=== PATIENT | female | born 1950 | race African-American/Black ===

== ENCOUNTER 2019-02-04 15:23 | Emergency (ER) | payer OTHER ==
[2019-02-04 16:59] LABS: Absolute Lymphocytes (CBC) 1.3 K/uL (0.7-4.9); Basophils % 0.9 % (0-1.3); Eosinophils % 4.5 % (0-4.4); Hematocrit 41.5 % (36.0-45.0); Lymphocytes % 21.9 % (15.3-44.8); MPV 7.9 fL (7.6-11.3); Monocytes % 10.1 % (3.3-12.3); RBC Red Blood Cell Count 4.96 M/uL (3.86-4.86)
[2019-02-04 17:02] LABS: Protime INR 0.94
[2019-02-04 17:19] LABS: ALT/SGPT 26 U/L (12-78); AST/SGOT 22 U/L (15-37); Albumin 3.9 g/dL (3.4-5.0); Alkaline Phosphatase 61 U/L (45-117); BUN Blood Urea Nitrogen 13 mg/dL (7-18); Bicarbonate 32 mmol/L (21-32); Bilirubin Total 0.5 mg/dL (0.2-1.0); Glucose Level 84 mg/dL (74-106); Potassium 3.4 mmol/L (3.5-5.1); Protein, Total 7.5 g/dL (6.4-8.2); Sodium Level 141 mmol/L (136-145)
[2019-02-04 17:19] LABS: Urine Amorphous Sediment 3+ /HPF (NONE SEEN); Urine Bacteria <20 /HPF (<20); Urine Culture Reflex Order NOT NEEDED; Urine RBC NONE SEEN /HPF (NONE SEEN)
[2019-02-04 17:20] LABS: Urine Blood NEGATIVE (NEG); Urine Glucose NEGATIVE (NEG); Urine Protein NEGATIVE (NEG)
--- NOTE | 2019-02-04 18:03 | RAD REPORT ---
EXAM DESCRIPTION: USExtrem Venous W Compress Bil02/04/2019 5:53 pm CLINICAL HISTORY: Bilateral leg swelling COMPARISON: Aug 2017 FINDINGS: The common femoral, superficial femoral, popliteal and posterior tibial veins bilaterally are compressible and demonstrate augmentation. Doppler demonstrates good flow. IMPRESSION: No evidence of deep venous thrombosis involving either lower extremity.
[2019-02-04] MEDS ORDERED: ACETAMINOPHEN 500 MG TAB ONE (18:07)
[2019-02-04] MEDS ORDERED: POTASSIUM 25 MEQ EFFERV TAB ONE (18:07)
--- NOTE | 2019-02-04 18:15 | ER ---
Nurse's Notes [facility] Name: Fan Woodruff Age: 68 yrs Sex: Female : 1950 Arrival Date: 02/04/2019 Time: 15:26 Bed 17 Private MD: Diagnosis: acute bilateral leg pain Presentation: 02/04 15:28 Presenting complaint: Patient states: today, both my lower legs are hurting bad, its hj hard for me to get off the bed; denies weakness, denies swelling, denies trauma to the area;. Transition of care: patient was not received from another setting of care. Onset of symptoms was February 04, 2019. Risk Assessment: Do you want to hurt yourself or someone else? Patient reports no desire to harm self or others. Initial Sepsis Screen: Does the patient meet any 2 criteria? No. Patient's initial sepsis screen is negative. Does the patient have a suspected source of infection? No. Patient's initial sepsis screen is negative. Care prior to arrival: None. 15:28 Method Of Arrival: Ambulatory 15:28 Acuity: JOHN 3 hj Triage Assessment: 15:30 General: Appears in no apparent distress. comfortable, Behavior is cooperative, bp appropriate for age, anxious. Pain: Complains of pain in right leg and left leg. EENT: No deficits noted. Neuro: No deficits noted. Cardiovascular: No deficits noted. Respiratory: No deficits noted. GI: No signs and/or symptoms were reported involving the gastrointestinal system. : No signs and/or symptoms were reported regarding the genitourinary system. Derm: No deficits noted. Musculoskeletal: No deficits noted. Historical: - Allergies: 15:30 No Known Allergies; hj - PMHx: 15:30 Hypertension; fatty liver; hj - PSHx: 15:30 sx for fractured clavicle; Partial hysterectomy; ; hj - Immunization history:: Adult Immunizations up to date. - Social history:: Smoking status: Patient/guardian denies using tobacco. - Family history:: not pertinent. - Ebola Screening: : No symptoms or risks identified at this time. - Hospitalizations: : No recent hospitalization is reported. Screenin:30 Abuse screen: Denies threats or abuse. Denies injuries from another. Nutritional bp screening: No deficits noted. Tuberculosis screening: No symptoms or risk factors identified. Fall Risk None identified. Assessment: 15:30 General: SEE TRIAGE NOTE. bp 17:24 Reassessment: U/S AT B/S. bp 19:00 Reassessment: PT D/C HOME AMBULATORY WITH FAMILY, DX WITH ACUTE LEG PAIN. bp Vital Signs: 15:30 BP 103 / 63; Pulse 77; Resp 16; Temp 98.3(O); Pulse Ox 96% on R/A; Weight 90.72 kg; hj Height 5 ft. 6 in. (167.64 cm); Pain 6/10; 16:30 BP 111 / 77; Pulse 71; Resp 16; Temp 98.0(TE); Pulse Ox 99% on R/A; mh5 17:22 BP 119 / 71; Pulse 67; Resp 17; Temp 97.9(TE); Pulse Ox 100% on R/A; mh5 19:00 BP 110 / 66; Pulse 65; Resp 16; Temp 98; Pulse Ox 100% ; bp 15:30 Body Mass Index 32.28 (90.72 kg, 167.64 cm) ED Course: 15:26 Patient arrived in ED. mr 15:30 Triage completed. hj 15:30 Patient has correct armband on for positive identification. Bed in low position. Call bp light in reach. Side rails up X2. Adult w/ patient. 15:32 Arm band placed on right wrist. hj 15:49 Ernesto Ortiz MD is Attending Physician. wa 16:07 Abel Elizabeth, RN is Primary Nurse. bp 17:54 Extrem Venous W Compression [place] US In Process Unspecified. EDOH 19:00 No provider procedures requiring assistance completed. IV discontinued, intact, bp bleeding controlled, No redness/swelling at site. Pressure dressing applied. Administered Medications: 17:30 Drug: Potassium Effervescent Tablet 50 mEq Route: PO; bp 17:30 Drug: Tylenol 1000 mg Route: PO; bp Outcome: 18:14 Discharge ordered by . wa 19:00 Discharged to home ambulatory, with family. bp 19:00 Condition: stable 19:00 Discharge instructions given to patient, Instructed on discharge instructions, follow up and referral plans. medication usage, Demonstrated understanding of instructions, follow-up care, medications, Prescriptions given X 1. 19:08 Patient left the ED. bp Signatures: Dispatcher [employer] [facility] Filomena Del Valle LucaBrian combs RN RN Emmanuelle Song mh5 Ernesto Ortiz MD MD wa Peltier, Brian, RN RN bp Corrections: (The following items were deleted from the chart) 15:32 15:30 Pulse 77bpm; Resp 16bpm; Pulse Ox 96% RA; Temp 98.3F Oral; 90.72 kg; Height 5 ft. hj 6 in.; BMI: 32.2; Pain 6/10; hj
--- NOTE | 2019-02-04 18:15 | EDPHYS ---
Physician Documentation [facility] Name: Fan Woodruff Age: 68 yrs Sex: Female : 1950 Arrival Date: 02/04/2019 Time: 15:26 Bed 17 Private MD: ED Physician Ernesto Ortiz HPI: 02/04 19:05 This 68 yrs old Black Female presents to ER via Ambulatory with complaints of Leg Pain. wa 19:05 The patient presents with pain, that is acute. The complaints affect the left leg and wa right leg. Context: The problem was sustained at home, resulted from an unknown cause, the patient can fully bear weight, the patient is able to ambulate, without difficulty, Problem is a result from a previous injury: No. states developed severe both legs pain while at home today. now improved. denies trauma. denies h/o same in the past. Onset: The symptoms/episode began/occurred today. Modifying factors: The symptoms are alleviated by nothing. the symptoms are aggravated by nothing. Associated signs and symptoms: The patient has no apparent associated signs or symptoms. Treatment prior to arrival includes: no previous treatment. Severity of symptoms: At their worst the symptoms were severe, in the emergency department the symptoms have improved, markedly. The patient has not experienced similar symptoms in the past. The patient has not recently seen a physician. Historical: - Allergies: 15:30 No Known Allergies; hj - PMHx: 15:30 Hypertension; fatty liver; hj - PSHx: 15:30 sx for fractured clavicle; Partial hysterectomy; ; hj - Immunization history:: Adult Immunizations up to date. - Social history:: Smoking status: Patient/guardian denies using tobacco. - Family history:: not pertinent. - Ebola Screening: : No symptoms or risks identified at this time. - Hospitalizations: : No recent hospitalization is reported. ROS: 19:08 Constitutional: Negative for fever, chills, and weight loss, Eyes: Negative for injury, wa pain, redness, and discharge, ENT: Negative for injury, pain, and discharge, Neck: Negative for injury, pain, and swelling, Cardiovascular: Negative for chest pain, palpitations, and edema, Respiratory: Negative for shortness of breath, cough, wheezing, and pleuritic chest pain, Abdomen/GI: Negative for abdominal pain, nausea, vomiting, diarrhea, and constipation, Back: Negative for injury and pain, : Negative for injury, bleeding, discharge, and swelling, Skin: Negative for injury, rash, and discoloration, Neuro: Negative for headache, weakness, numbness, tingling, and seizure, Psych: Negative for depression, anxiety, suicide ideation, homicidal ideation, and hallucinations. 19:08 MS/extremity: Positive for pain, of the left leg and right leg, Negative for injury or acute deformity, contusion, ecchymosis, erythema, swelling. Exam: 19:09 Constitutional: This is a well developed, well nourished patient who is awake, alert, wa and in no acute distress. Head/Face: Normocephalic, atraumatic. Eyes: Pupils equal round and reactive to light, extra-ocular motions intact. Lids and lashes normal. Conjunctiva and sclera are non-icteric and not injected. Cornea within normal limits. Periorbital areas with no swelling, redness, or edema. ENT: Nares patent. No nasal discharge, no septal abnormalities noted. Tympanic membranes are normal and external auditory canals are clear. Oropharynx with no redness, swelling, or masses, exudates, or evidence of obstruction, uvula midline. Mucous membranes moist. Neck: Trachea midline, no thyromegaly or masses palpated, and no cervical lymphadenopathy. Supple, full range of motion without nuchal rigidity, or vertebral point tenderness. No Meningismus. Chest/axilla: Normal chest wall appearance and motion. Nontender with no deformity. No lesions are appreciated. Cardiovascular: Regular rate and rhythm with a normal S1 and S2. No gallops, murmurs, or rubs. Normal PMI, no JVD. No pulse deficits. Respiratory: Lungs have equal breath sounds bilaterally, clear to auscultation and percussion. No rales, rhonchi or wheezes noted. No increased work of breathing, no retractions or nasal flaring. Abdomen/GI: Soft, non-tender, with normal bowel sounds. No distension or tympany. No guarding or rebound. No evidence of tenderness throughout. Back: No spinal tenderness. No costovertebral tenderness. Full range of motion. Neuro: Awake and alert, GCS 15, oriented to person, place, time, and situation. Cranial nerves II-XII grossly intact. Motor strength 5/5 in all extremities. Sensory grossly intact. Cerebellar exam normal. Normal gait. Psych: Awake, alert, with orientation to person, place and time. Behavior, mood, and affect are within normal limits. 19:09 Musculoskeletal/extremity: Extremities: no swelling to both lower extremities. normothermic. no redness. however multiple spider varicose veins noted bilaterally, ROM: no acute changes, intact in all extremities. Vital Signs: 15:30 BP 103 / 63; Pulse 77; Resp 16; Temp 98.3(O); Pulse Ox 96% on R/A; Weight 90.72 kg; hj Height 5 ft. 6 in. (167.64 cm); Pain 6/10; 16:30 BP 111 / 77; Pulse 71; Resp 16; Temp 98.0(TE); Pulse Ox 99% on R/A; mh5 17:22 BP 119 / 71; Pulse 67; Resp 17; Temp 97.9(TE); Pulse Ox 100% on R/A; mh5 19:00 BP 110 / 66; Pulse 65; Resp 16; Temp 98; Pulse Ox 100% ; bp 15:30 Body Mass Index 32.28 (90.72 kg, 167.64 cm) MDM: 15:49 Patient medically screened. ga 19:10 Differential diagnosis: pain of unclear etiology that has improved. ga 02/04 16:18 Order name: CBC with Diff; Complete Time: 17:23 ga 02/04 16:18 Order name: CMP; Complete Time: 17:24 ga 02/04 16:18 Order name: PT-INR; Complete Time: 17:24 ga 02/04 16:18 Order name: Urine Microscopic Only; Complete Time: 17:24 ga 02/04 16:19 Order name: Extrem Venous W Compression [place] US; Complete Time: 18:11 ga 02/04 17:14 Order name: Urine Dipstick--Ancillary (enter results); Complete Time: 17:23 02/04 16:18 Order name: IV Start; Complete Time: 17:55 ga 02/04 16:18 Order name: Urine Dipstick-Ancillary (obtain specimen); Complete Time: 17:46 ga Administered Medications: 17:30 Drug: Potassium Effervescent Tablet 50 mEq Route: PO; bp 17:30 Drug: Tylenol 1000 mg Route: PO; bp Disposition: 02/04/19 18:14 Discharged to Home. Impression: acute bilateral leg pain. - Condition is Stable. - Discharge Instructions: Leg Cramps. - Prescriptions for Tramadol 50 mg Oral Tablet - take 1 tablet by ORAL route every 8 hours as needed; 20 tablet. - Medication Reconciliation Form, Thank You Letter, Antibiotic Education, Prescription Opioid Use form. - Follow up: Private Physician; When: 2 - 3 days; Reason: Recheck today's complaints. - Problem is new. - Symptoms have improved. - Notes: take pain medication. follow up with your doctor regarding leg pain. you will need further evaluation Signatures: Dispatcher [employer] EDMS Brian Segovia RN RN Ernesto Ortiz MD MD wa Peltier, Brian RN RN bp Corrections: (The following items were deleted from the chart) 19:08 18:14 02/04/2019 18:14 Discharged to Home. Impression: acute bilateral leg pain. bp Condition is Stable. Forms are Medication Reconciliation Form, Thank You Letter, Antibiotic Education, Prescription Opioid Use. Follow up: Private Physician; When: 2 - 3 days; Reason: Recheck today's complaints. Problem is new. Symptoms have improved. wa
== END 2019-02-04 19:08 | disposition home or self-care (01) ==
LOC: ER 15:23
DX: M79.605 Pain in left leg (principal); M79.604 Pain in right leg; I10 Essential (primary) hypertension
CPT/HCPCS: 36415; 80053; 81003; 81015; 85025; 85610; 93970; 99283

== ENCOUNTER 2019-09-25 06:06 | Day surgery (SDC) | payer OTHER ==
--- NOTE | 2019-09-23 11:56 | RAD REPORT ---
EXAM DESCRIPTION: RAD - Chest Pa And Lat (2 Views) - 09/23/2019 11:50 am CLINICAL HISTORY: preop Chest pain. COMPARISON: No comparisons FINDINGS: The lungs are clear. The heart is mildly enlarged in size. No displaced fractures. Bridgin g osteophytes seen thoracic spine.
[2019-09-23 12:08] LABS: Absolute Lymphocytes (CBC) 1.9 K/uL (0.7-4.9); Basophils % 1.1 % (0-1.3); Hematocrit 41.6 % (36.0-45.0); Lymphocytes % 37.2 % (15.3-44.8); MPV 8.2 fL (7.6-11.3); RBC Red Blood Cell Count 4.97 M/uL (3.86-4.86)
[2019-09-23 14:21] LABS: BUN Blood Urea Nitrogen 12 mg/dL (7-18); Bicarbonate 30 mmol/L (21-32); Glucose Level 112 mg/dL (74-106); Potassium 3.1 mmol/L (3.5-5.1); Sodium Level 142 mmol/L (136-145)
--- NOTE | 2019-09-23 15:27 | EKG ---
Test Date: 2019-09-23 Test Time: 11:31:47 Engine Boss: ANGELA MEASUREMENT RESULTS: Intervals: Rate: 66 MD: 164 QRSD: 88 QT: 448 QTc: 469 [place]: P: 46 MD: 164 QRS: 3 T: 24 INTERPRETIVE STATEMENTS: Normal sinus rhythm Normal ECG Compared to ECG 07/08/2015 11:19:59 Sinus bradycardia no longer present T-wave abnormality no longer present Electronically Signed On 09-23-19 15:27:03 PRESS OPERATOR HEAVY DUTY by Anthony Gamboa
[2019-09-25] MEDS ORDERED: CEFAZOLIN/SWI 1gm 1 GM/10 ML SYR ONE (06:14)
[2019-09-25] MEDS ORDERED: Ringers Lactate 1,000 ML IV ONE (06:14)
[2019-09-25] MEDS ORDERED: BUPIVACAINE 0.5% PF 10 ML VIAL ONE (07:14)
[2019-09-25] MEDS ORDERED: propofoL 200 MG/20 ML VIAL IV ONE (07:15)
[2019-09-25] MEDS ORDERED: LIDOCAINE 2% MPF 5 ML VIAL ONE (07:16)
[2019-09-25] MEDS ORDERED: FENTANYL CITR 100 MCG/2 ML ONE (07:16)
[2019-09-25] MEDS ORDERED: MIDAZOLAM HCL 2 MG/2 ML INJ ONE (07:16)
[2019-09-25] MEDS ORDERED: ONDANSETRON 4 MG/2 ML VIAL ONE (07:19)
[2019-09-25] MEDS ORDERED: LIDOCAINE 1% W/EPI 1:100,000 MDV 20 ML VIAL ONE (07:53)
[2019-09-25 08:53] VITALS: TEMP 97.1
[2019-09-25 08:54] VITALS: BP 119/73; O2SAT 99
--- NOTE | 2019-09-25 19:13 | OP ---
Date of Procedure: 09/25/2019 Surgeon: Paulie Chavez MD Playroom Attendant: CHENCHO Gomez. Preoperative Diagnosis: Scalp mass. Postoperative Diagnosis: Scalp mass. Procedure: Wide excision of scalp mass, 4 x 2 cm with layered closure 4 cm. Estimated Blood Loss: Minimal. Specimen: Scalp mass. Finding: As above. Anesthesia: MAC. Complication: None. Disposition: Patient tolerated the procedure well in stable condition, taken to Recovery in good gen eral condition. Operative Note: Patient was brought to the OR and placed in supine position. MAC anesthesia was beg un. The patient was prepped and draped in usual sterile fashion. Lidocaine 1% with epinephrine infi ltrated locally. 15-blade was used to make a 4 x 2 cm incision, excised this. Approximately 2.5 cm mass excised, sent to Pathology as specimen. Wound irrigated. Bleeding controlled with cautery. 2- 0 chromic used to approximate subcutaneous tissue, and 3-0 nylon used to close the skin. Sterile geoff ssing was applied. Patient was awakened and taken to Recovery in good general condition. Discharge Note: The patient will go to Day Surgery and home when stable. Disposition: Home. Condition: Stable. Discharge Instructions: Resume home medications and diet. Activity as tolerated. No heavy lifting. Remove outer dressing in 2 days. Shower. Keep wound clean and dry. Follow up in my office in 2 w eeks. Call for appointment. Tylenol No. 3 one tablet p.o. q.4 p.r.n. pain. /MODL Voice ID: [id number] Report ID: [id number]
== END 2019-09-25 09:30 | disposition home or self-care (01) ==
LOC: OR 06:06
PROVIDERS: ATTEND Surgery
PROC: 0JB00ZZ Excision of Scalp Subcutaneous Tissue and Fascia, Open Approach (ICD-10-PCS; principal; 2019-09-25 07:30)
DX: L72.11 Pilar cyst (principal); I10 Essential (primary) hypertension; I25.10 Atherosclerotic heart disease of native coronary artery without angina pectoris; I25.2 Old myocardial infarction
CPT/HCPCS: 93005; 85025; 80048; 36415 ×2; 84132; 88304; 71046; 11424; J2704; J2250; J3010; J0690; J7120; J2405; 88305

== ENCOUNTER → 2021-12-10 | Day surgery (SDC) | payer OTHER ==
--- NOTE | 2021-12-10 11:57 | RAD REPORT ---
EXAM DESCRIPTION: US - Breast Core BX w/US Guidance - 12/10/2021 10:03 am CLINICAL HISTORY: ICD R 92.8 COMPARISON: December 23, 2020 ultrasound TECHNIQUE: The risks, benefits alternatives to the procedure were explained to the patient and infor med consent obtained. Skin and subcutaneous tissues anesthetized with lidocaine. Under sonographic guidance, 4 x 18 gauge vacuum assisted core biopsies of the mass within the left br east obtained. 2 centimeter specimens taken. Tissue given to pathology. Subsequently a localizing clip was placed into the mass. Patient experienced no immediate complication IMPRESSION: Technically successful ultrasound-guided core biopsy of a suspicious left breast mass.
== END ==
LOC: DS 08:51
PROVIDERS: ATTEND Surgery
DX: N63.23 Unspecified lump in the left breast, lower outer quadrant (principal)
CPT/HCPCS: 19083; 88305

== ENCOUNTER 2022-01-05 08:37 | Day surgery (SDC) | payer OTHER ==
[2022-01-05 09:05] LABS: Absolute Lymphocytes (CBC) 1.7 K/uL (0.7-4.9); Hematocrit 38.3 % (36.0-45.0); Lymphocytes % 37.1 % (15.3-44.8); MPV 7.9 fL (7.6-11.3); RBC Red Blood Cell Count 4.51 M/uL (3.86-4.86)
[2022-01-05] MEDS ORDERED: Ringers Lactate 1,000 ML IV ONE (09:06)
[2022-01-05] MEDS ORDERED: CEFAZOLIN SODIUM 1 GM/VIAL ONE (09:06)
--- NOTE | 2022-01-05 09:21 | RAD REPORT ---
EXAM DESCRIPTION: RAD - Chest Pa And Lat (2 Views) - 01/05/2022 9:15 am CLINICAL HISTORY: pre procedural screenign Chest pain. COMPARISON: Chest Pa And Lat (2 Views) dated 09/23/2019; Breast Core BX w/US Guidance dated 12/10/2021 FINDINGS: The lungs are mildly emphysematous but clear. The heart is normal in size. No displaced fr actures. IMPRESSION: Mild COPD.
[2022-01-05] MEDS ORDERED: ACETAMINOPHEN 500 MG TAB PO ONE (09:24)
[2022-01-05] MEDS ORDERED: CELECOXIB 100 MG CAPSULE PO ONE (09:24)
[2022-01-05] MEDS ORDERED: ACETAMINOPHEN 500 MG TAB ONE (09:26)
[2022-01-05] MEDS ORDERED: CELECOXIB 100 MG CAPSULE ONE (09:26)
[2022-01-05 09:51] LABS: Potassium 3.7 mmol/L (3.5-5.1)
--- NOTE | 2022-01-05 12:32 | RAD REPORT ---
EXAM DESCRIPTION: US - Brst,Preop NL Wire Init w/Guid - 01/05/2022 11:53 am CLINICAL HISTORY: NDL LOC Left breast mass COMPARISON: Breast Core BX w/US Guidance dated 12/10/2021 FINDINGS: Preoperative diagnosis: Left breast mass. Post operative diagnosis: Same. Conscious Sedation: None Fluoroscopy time: None Contrast used: None Estimated blood loss: Minimal The left breast was prepped and draped in the usual sterile fashion. 1% lidocaine was infiltrated int o the subcutaneous tissues for local anesthesia. Kopan's fluid wire was placed with the tip along the inferior margin of the left breast mass of interest. There were no complications. Patient was then t ransferred to surgery. IMPRESSION: Successful ultrasound-guided left breast preoperative wire localization.
[2022-01-05] MEDS ORDERED: LIDOCAINE 1% MPF 5 ML VIAL ONE (12:39)
[2022-01-05] MEDS ORDERED: propofoL 200 MG/20 ML VIAL IV ONE (12:39)
[2022-01-05] MEDS ORDERED: ROCURONIUM 50 MG/5 ML VIAL IV ONE (12:40)
[2022-01-05] MEDS ORDERED: FENTANYL CITR 250 MCG/5 ML ONE (12:40)
[2022-01-05] MEDS ORDERED: NS 0.9% VIAL 10 ML ONE ×2 (12:52→13:01)
[2022-01-05] MEDS ORDERED: dexAMETHasone 10 MG/ML VIAL ONE (12:59)
[2022-01-05] MEDS ORDERED: ONDANSETRON 4 MG/2 ML VIAL ONE (13:00)
[2022-01-05] MEDS ORDERED: KETOROLAC 30 MG/ML INJ ONE (13:00)
[2022-01-05] MEDS ORDERED: EPHEDRINE SULF 50 MG/ML VIAL ONE (13:00)
--- NOTE | 2022-01-05 13:00 | EKG ---
Test Date: 2022-01-05 Test Time: 09:10:32 Manager Inpatient: LORELEI MEASUREMENT RESULTS: Intervals: Rate: 53 [place]: 156 QRSD: 84 QT: 448 QTc: 420 [place]: P: 42 [place]: 156 QRS: 3 T: 13 INTERPRETIVE STATEMENTS: Sinus bradycardia Nonspecific T wave abnormality Abnormal ECG Compared to ECG 09/23/2019 11:31:47 T-wave abnormality now present Sinus rhythm no longer present Electronically Signed On 01-05-22 12:59:38 CDT by Derrick Ibarra
[2022-01-05] MEDS ORDERED: GLYCOPYRROLATE 0.2 MG/ML SYR ONE (13:17)
[2022-01-05] MEDS ORDERED: NEOSTIGMINE 1 MG/ML -10 ML VIAL ONE (13:19)
[2022-01-05] MEDS ORDERED: Mastisol Adhesive Liq ONE (13:25)
--- NOTE | 2022-01-05 13:26 | P.BOP ---
Preoperative diagnosis: left breast mass Postoperative diagnosis: same Primary procedure: LEft breast lumpectomy needele localized Abstract Writer: ELSY YOON (ASSURANCE SENIOR MANAGER) Estimated blood loss: <10cc Specimen: mass Findings: lesion within the specimen by Dr Eason Anesthesia: General Complications: None Transferred to: Recovery Room Condition: Good
--- NOTE | 2022-01-05 13:50 | RAD REPORT ---
EXAM DESCRIPTION: US - Surgical Specimen - 01/05/2022 1:41 pm CLINICAL HISTORY: SPEC Surgical specimen COMPARISON: Brst,Preop NL Wire Init w/Guid dated 01/05/2022 FINDINGS: The resected breast lesion and wire is seen to lie within the surgical specimen. Findings were discussed with Dr. Andre.
[2022-01-05] MEDS: HYDROMORPHONE HCL 1 MG/ML INJ ONE ×2 (13:54→13:59)
[2022-01-05 13:56] VITALS: O2SAT 97
[2022-01-05 14:06] VITALS: BP 131/76; TEMP 97
[2022-01-05] MEDS ORDERED: CODEINE 30MG/APAP 300MG TAB ONE (14:44)
[2022-01-05] MEDS ORDERED: HYDROCODONE/APAP 5/325 MG TAB ONE (15:05)
[2022-01-05] MEDS: ONDANSETRON 4 MG (ODT) TAB ONE ×2 (15:30→15:33)
--- NOTE | 2022-01-06 00:36 | DS ---
Date of Discharge: 01/05/2022 Diagnosis: Left breast mass. Procedure: Left breast lumpectomy, needle localized. Disposition: Home. Activity: As tolerated. No heavy lifting. Followup: In my office in 1 week. Call for appointment [phone]. Use breast support. COOPER/LAURYN Voice ID: [id number] Report ID: [id number]
--- NOTE | 2022-01-06 00:36 | OP ---
Date of Procedure: 01/05/2022 Surgeon: Brian Andre MD Central Office Equipment Installer: CHENCHO Gomez. Preoperative Diagnosis: Left breast mass. Postoperative Diagnosis: Left breast mass. Procedures: Left breast lumpectomy, needle localized. Estimated Blood Loss: Less than 10 cc. Specimen: Mass. Findings: Lesion within the specimen with an intact wire by Dr. Eason. Anesthesia: General plus local. Indication: This is a case of a female, who comes to us with a lesion that cannot be explained or co mpletely defined on previous imaging. She wants that lesion excised. The benefits, alternatives, an d risks of excision with needle localization were fully explained, which include, but not limited to, infection, bleeding, damage to adjacent structures, anesthesia complication, recurrence, KS, and doris th. She also understands this may not relieve her symptoms. She might need more than one surgical i ntervention. She understood, signed a consent. Description Of Procedure: The patient came this morning to the radiology suite, where she has focali zation of this lesion by radiologist. After that, the patient was brought to the recovery and then a fter that to the OR making sure the wire is protected at all times. The patient was brought to the o perating room and placed in supine position. Anesthesia was done without complication. Left breast was prepped and draped in sterile fashion. Local anesthesia was applied followed by curvilinear inci javon after time-out on the left breast region. We secured the breast tissue with the Allis to the wi re and then we proceeded to remove a lump around the area to gross negative margins. We also sent th e specimen to the radiologist, who confirmed the lesion within the specimen and wire intact. We irri gated the area, obtained hemostasis, and closed the area with 3-0 chromic and a 4-0 PDS with Steri-St rips on top. Sponge count and instrument count were correct. The patient tolerated the procedure we ll. The patient was on her way to recovery in stable condition. COOPER/ROSAMARIAL Voice ID: [id number] Report ID: [id number]
== END 2022-01-05 15:33 | disposition home or self-care (01) ==
LOC: OR 08:37
PROVIDERS: ATTEND Surgery
PROC: 0HBU0ZZ Excision of Left Breast, Open Approach (ICD-10-PCS; principal; 2022-01-05 12:00)
DX: D24.2 Benign neoplasm of left breast (principal); N60.02 Solitary cyst of left breast; Z20.822 Contact with and (suspected) exposure to COVID-19; E78.00 Pure hypercholesterolemia, unspecified; I51.9 Heart disease, unspecified; I10 Essential (primary) hypertension
CPT/HCPCS: 19301; 93005; 85025; 80048; 36415; 88305; 71046; 76098; 19285; U0003; J2704; J2710; J3010; J1100; J1170; J7120; J2405; J0690; 88307